=== PATIENT | female | born 1980 | race Caucasian/White ===

== ENCOUNTER 2017-03-27 17:03 | Emergency (ER) | payer BC ==
--- NOTE | 2017-03-27 17:51 | ER Document Report ---
ED Medical Screen (RME) - General Chief Complaint: Possible Overdose Stated Complaint: POSSIBLE ALLERGIC REACTION TO MEDS Time Seen by Provider: 03/27/17 17:33 Mode of Arrival: Wheelchair Information source: Patient, Relative TRAVEL OUTSIDE OF THE [place] IN LAST 30 DAYS: No - HPI Onset: This afternoon Onset/Duration: Gradual - UNSURE Context: Patient's spouse says he came home from work today to find the patient confused , pacing back and forth, unable to tell him exactly what was going on. Quality of pain: No pain - DENIES AT PRESENT Associated Symptoms: denies: Chest pain, Fever, Headache Similar symptoms previously: No Recently seen / treated by doctor: Yes Notes: 03/27/17 17:50 Patient is on multiple medications, prescribed more than 1 practitioner. - Related Data Allergies/Adverse Reactions: doxycycline [Doxycycline] Allergy (Verified 03/27/17 17:05) moxifloxacin HCl [From Avelox] Allergy (Verified 03/27/17 17:05) Past Medical History - General Information source: Patient, Relative - Social History Chew tobacco use (# tins/day): No Frequency of alcohol use: None Drug Abuse: None Lives with: Spouse/Significant other - Past Medical History Cardiac Medical History: Reports: Hx Hypertension Pulmonary Medical History: Reports: None Renal/ Medical History: Denies: Hx Peritoneal Dialysis GI Medical History: Reports: Hx Gastroesophageal Reflux Disease Musculoskeltal Medical History: Reports Hx Arthritis - SUSPECTED RHEUMATOID DISEASE Psychiatric Medical History: Reports: Hx Anxiety, Hx Depression Past Surgical History: Reports: Hx Orthopedic Surgery - right FA x4, Hx Tonsillectomy - & adenoids - Immunizations Hx Diphtheria, Pertussis, Tetanus Vaccination: Yes Review of Systems - Review of Systems -: Yes ROS unobtainable due to patient's medical condition Physical Exam - Vital signs Vitals: Temp Pulse Resp BP Pulse Ox 97.9 F 110 H 22 H 136/109 H 97 03/27/17 17:05 03/27/17 17:05 03/27/17 17:05 03/27/17 17:05 03/27/17 17:05 Interpretation: Hypertensive, Tachycardic, Tachypneic. No: Febrile - General General appearance: Other - AGITATED In distress: None - HEENT Head: Normocephalic Eyes: Normal Conjunctiva: Normal Pupils: Dilated Ears: Normal Nasal: Normal Mouth/Lips: Normal Mucous membranes: Normal Neck: Normal, Supple - Respiratory Respiratory status: No respiratory distress - Cardiovascular Rhythm: Regular, Tachycardia - Abdominal Inspection: Obese - Extremities General upper extremity: Normal inspection General lower extremity: Normal inspection - Neurological Neuro grossly intact: No Cognition: Confused Orientation: Disoriented to time [place] Coma Scale Eye Opening: Spontaneous [place] Coma Scale Verbal: Oriented [place] Coma Scale Motor: Obeys Commands [place] Coma Scale Total: 15 Speech: Expressive aphasia Cranial nerves: Normal Cerebellar coordination: Gait ataxia 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
[2017-03-27 18:13] LABS: ABSOLUTE BASOPHILS # (AUTO) 0.1 10^3/uL (0.0-0.2); ABSOLUTE LYMPHOCYTES (AUTO) 3.6 10^3/uL (0.5-4.7); ABSOLUTE MONOCYTES (AUTO) 0.5 10^3/uL (0.1-1.4); ABSOLUTE NEUT (AUTO) 14.2 10^3/uL (1.7-8.2); BASOPHILS % (AUTO) 0.6 % (0-2); EOSINOPHILS % (AUTO) 0.1 % (0-6); HEMATOCRIT 41.9 % (36.0-47.0); HEMOGLOBIN 13.8 g/dL (12.0-15.5); HGB HCT DIFFERENCE -0.5; LYMPHOCYTES % (AUTO) 19.6 % (13-45); MEAN CORPUSCULAR HEMOGLOBIN 29.9 pg (27.0-33.4); MEAN CORPUSCULAR VOLUME 91 fl (80-97); MONOCYTES % (AUTO) 2.9 % (3-13); RED BLOOD COUNT 4.62 10^6/uL (3.72-5.28); RED CELL DISTRIBUTION WIDTH 13.4 % (11.5-14.0); SEGMENTED NEUTROPHILS % (AUTO) 76.8 % (42-78); WHITE BLOOD COUNT 18.5 10^3/uL (4.0-10.5)
[2017-03-27] MEDS ORDERED: NORMAL SALINE 1000 ML 1,000 ML IV ONE (18:18)
--- NOTE | 2017-03-27 18:23 | ER Document Report ---
ED General - General Chief Complaint: Possible Overdose Stated Complaint: POSSIBLE ALLERGIC REACTION TO MEDS Time Seen by Provider: 03/27/17 17:33 Mode of Arrival: Wheelchair Information source: Patient, Relative Cannot obtain history due to: Altered mental status Notes: This is a 36-year-old female who presents with altered mental status. Her , she has a history of hypertension, spina bifida and chronic back pain for which she takes chronic opiates, rheumatoid arthritis, and hyperthyroidism. Majority of the history is obtained from the as patient is confused. He states that he initially noted that she was confused at about midnight last night. She seemed somewhat agitated and was pacing around the house. He went back to sleep. It appears that the patient was up all night. When he left this morning he states that she seemed a little better and not as confused. When he returned home from work at about 1615, states that she again was confused and speaking "gibberish" and pacing around the house. She was unable to tell him what was going on and just kept saying I am sorry and okay. Upon arrival to the ER patient is alert but confused. states that this has never happened before. Patient is denying taking any other medicines than prescribed and denies overdosing at this time. TRAVEL OUTSIDE OF THE [place] IN LAST 30 DAYS: No - Related Data Allergies/Adverse Reactions: doxycycline [Doxycycline] Allergy (Verified 03/27/17 17:05) moxifloxacin HCl [From Avelox] Allergy (Verified 03/27/17 17:05) Past Medical History - General Information source: Patient, Relative Cannot obtain history due to: Altered mental status - Social History Smoking Status: Current Every Day Smoker Chew tobacco use (# tins/day): No Frequency of alcohol use: None Drug Abuse: None Lives with: Spouse/Significant other Family History: None, Reviewed & Not Pertinent Patient has suicidal ideation: No Patient has homicidal ideation: No - Past Medical History Cardiac Medical History: Reports: Hx Hypertension Pulmonary Medical History: Reports: None Endocrine Medical History: Reports: Hx Hyperthyroidism Renal/ Medical History: Denies: Hx Peritoneal Dialysis GI Medical History: Reports: Hx Gastroesophageal Reflux Disease Musculoskeltal Medical History: Reports Hx Arthritis - SUSPECTED RHEUMATOID DISEASE, Reports Other - chronic back pain Psychiatric Medical History: Reports: Hx Anxiety, Hx Depression Past Surgical History: Reports: Hx Orthopedic Surgery - right FA x4, Hx Tonsillectomy - & adenoids - Immunizations Hx Diphtheria, Pertussis, Tetanus Vaccination: Yes Review of Systems - Review of Systems -: Yes ROS unobtainable due to patient's medical condition - altered mental status. reports no fevers or recent illness Physical Exam - Vital signs Vitals: Temp Pulse Resp BP Pulse Ox 97.9 F 110 H 22 H 136/109 H 97 03/27/17 17:05 03/27/17 17:05 03/27/17 17:05 03/27/17 17:05 03/27/17 17:05 - Notes Notes: PHYSICAL EXAMINATION: GENERAL: Well-appearing, well-nourished obese female who is alert but confused, and in no acute distress. HEAD: Atraumatic, normocephalic. Flushed cheeks. EYES: Pupils dilated 4mm bilaterally, sluggishly reactive, extraocular movements intact, sclera anicteric, conjunctiva are normal. ENT: nares patent, oropharynx clear without exudates. Mucous membranes dry NECK: Normal range of motion, supple without lymphadenopathy LUNGS: Breath sounds clear to auscultation bilaterally and equal. No wheezes rales or rhonchi. HEART: tachycardic Regular rate and rhythm without murmurs ABDOMEN: Soft, nontender, normoactive bowel sounds. No guarding, no rebound. No masses appreciated. EXTREMITIES: Normal range of motion NEUROLOGICAL: Pt alert to person, knows she is in the hospital. Slow to respond to questions. Repeatedly says "I'm sorry". Seems confused. Unable to state the year or month. Cranial nerves grossly intact. No gross focal motor or sensory deficits appreciated PSYCH: Normal mood, normal affect. SKIN: Warm, Dry, normal turgor, flushed cheeks Course - Re-evaluation Re-evalutation: 03/27/17 19:45 Patient presents with altered mental status and vitals and exam findings concerning for anticholinergic toxidrome. Will complete a med list reviewed. Patient is denying any specific overdose at this time but she is altered. 03/27/17 20:37 Patient reexamined. Vital signs no longer show tachycardia or hypertension. Pulse rate is 75, blood pressure 125/63. Her mental status is the same as upon presentation, she is still confused 03/27/17 21:54 Patient seems more oriented now however she still cannot tell me the month or the day and still has episodes of confusion. She has not returned to her normal baseline. She cannot remember a specific overdose of her medication today. While I still suspect the symptoms may be due to overmedication, she does have a leukocytosis and I feel it is appropriate to rule out meningitis/ encephalitis. With the patient in a left lateral decubitus position I attempted to palpate the lumbar spinous processes. However, secondary to body habitus and multiple surgical scars over the area, I am unable to palpate her landmarks. I do not feel that a blind attempt would be successful. I did discuss this with the night radiologist and the manager technical support and will proceed with an LP under fluoroscopy. In the meantime patient will be given IV antibiotics and acyclovir. 03/28/17 04:26 Patient has had her lumbar puncture performed under fluoroscopy. The results are not indicative of meningitis or encephalitis. She is reexamined at this time. She is alert and oriented, pleasant and conversant and back to her normal self. She still denies any knowledge of overdose, however she states that she is certain that her symptoms were related to her medication. She states that from time to time this will have been secondary to her baclofen. She plans to follow-up with her primary physician this week to discuss tapering off of baclofen. At this point her vitals have normalized and she is at her baseline mental status. I do suspect that this episode of altered mental status was medication induced and perhaps even an anti-cholinergic toxidrome, which has now completely cleared. Patient is comfortable with discharge home with . She will follow up with her primary care physician this week. Strict return precautions were discussed. - Vital Signs Vital signs: Temp Pulse Resp BP Pulse Ox 97.7 F 110 H 15 124/65 97 03/27/17 20:13 03/27/17 17:05 03/28/17 04:00 03/27/17 23:01 03/28/17 04:00 - Laboratory Result Diagrams: 03/27/17 17:59 03/27/17 17:59 Laboratory results interpreted by me: 03/27/17 03/27/17 03/27/17 17:59 17:59 19:35 WBC 18.5 H Monocytes % 2.9 L Absolute Neutrophils 14.2 H ESR 35 H Sodium 148.1 H BUN 23 H Calcium 10.3 H AST 78 H ALT 118 H Urine Ketones TRACE H CSF RBC Salicylates < 1.0 L Acetaminophen < 10 L 03/28/17 01:18 WBC Monocytes % Absolute Neutrophils ESR Sodium BUN Calcium AST ALT Urine Ketones CSF RBC 1305 H Salicylates Acetaminophen - Diagnostic Test Radiology reviewed: Reports reviewed - CT head: no acute process - EKG Interpretation by Me Additional EKG results interpreted by me: 03/27/17 20:39 EKG demonstrates normal sinus rhythm with a rate of 85. QT and QRS intervals are within normal limits. There are nonspecific T-wave changes. No ST segment elevation or depression. Discharge - Discharge Clinical Impression: Altered mental status, unspecified Qualifiers: Altered mental status type: unspecified Qualified Code(s): R41.82 - Altered mental status, unspecified Medication side effect Qualifiers: Encounter type: initial encounter Qualified Code(s): T88.7XXA - Unspecified adverse effect of drug or medicament, initial encounter Leukocytosis Qualifiers: Leukocytosis type: other Qualified Code(s): D72.828 - Other elevated white blood cell count Condition: Stable Disposition: HOME, SELF-CARE Additional Instructions: Your spinal tap fluid did not show evidence of infection like meningitis or encephalitis. Take all prescription medications as prescribed. Do not suddenly stop taking the baclofen it must be tapered down. As discussed, follow-up with your primary care physician on Thursday. Return to the ER for any fever greater than 100.4, any recurrent confusion, or any worsening symptoms or concerns.
[2017-03-27 18:38] LABS: ALANINE AMINOTRANSFERASE 118 U/L (9-52); ALBUMIN 4.7 g/dL (3.5-5.0); ALCOHOL < 10 mg/dL (NONE DETECTED); ALKALINE PHOSPHATASE 79 U/L (38-126); ANION GAP 15 (5-19); ASPARTATE AMINO TRANSFERASE 78 U/L (14-36); BILIRUBIN,DIRECT 0.4 mg/dL (0.0-0.4); BILIRUBIN,TOTAL 0.9 mg/dL (0.2-1.3); BLOOD UREA NITROGEN 23 mg/dL (7-20); CALCIUM 10.3 mg/dL (8.4-10.2); CARBON DIOXIDE 27 mmol/L (22-30); CHLORIDE 106 mmol/L (98-107); CREATININE RESULT 0.76 mg/dL (0.52-1.25); GLUCOSE 110 mg/dL (75-110); POTASSIUM 3.9 mmol/L (3.6-5.0); SODIUM 148.1 mmol/L (137-145); TOTAL PROTEIN 8.2 g/dL (6.3-8.2)
[2017-03-27 18:51] LABS: ERYTHROCYTE SEDIMENTATION RATE 35 mm/hr (0-20)
--- NOTE | 2017-03-27 19:26 | RADIOLOGY REPORT (SQ) ---
EXAM DESCRIPTION: CT HEAD WITHOUT COMPLETED DATE/TIME: 03/27/2017 7:17 pm REASON FOR STUDY: AMS COMPARISON: None. TECHNIQUE: Axial images acquired through the brain without intravenous contrast. Images reviewed wi th bone, brain and subdural windows. Images stored on PACS. All CT scanners at this facility use dose modulation, iterative reconstruction, and/or weight based d osing when appropriate to reduce radiation dose to as low as reasonably achievable (ALARA). [facility]: Dose Right [facility]: CareDose [facility]: Dose Right [facility]: Teradose 4D [facility]: [employer] RADIATION DOSE: 64.61 mGy. LIMITATIONS: None. FINDINGS: VENTRICLES: Normal size and contour. CEREBRUM: No masses. No hemorrhage. No midline shift. Normal valencia/white matter differentiation. N o evidence for acute infarction. CEREBELLUM: No masses. No hemorrhage. No alteration of density. No evidence for acute infarction. EXTRAAXIAL SPACES: No fluid collections. No masses. ORBITS AND GLOBE: No intra- or extraconal masses. Normal contour of globe without masses. CALVARIUM: No fracture. PARANASAL SINUSES: No fluid or mucosal thickening. SOFT TISSUES: No mass or hematoma. OTHER: No other significant finding. IMPRESSION: NORMAL BRAIN CT WITHOUT CONTRAST. TECHNICAL DOCUMENTATION: JOB ID: [id number] Quality ID # [id number]: Final reports with documentation of one or more dose reduction techniques (e.g., Au tomated exposure control, adjustment of the mA and/or kV according to patient size, use of iterative reconstruction technique) 2010 [employer]- All Rights Reserved
[2017-03-27 20:02] LABS: APPEARANCE,URINE SLIGHTLY-CLOUDY; BILIRUBIN,URINE NEGATIVE (NEGATIVE); GLUCOSE, URINE NEGATIVE (NEGATIVE); KETONES,URINE TRACE mg/dL (NEGATIVE); LEUKOCYTE ESTERASE,URINE NEGATIVE (NEGATIVE); NITRITE,URINE NEGATIVE (NEGATIVE); PROTEIN,URINE NEGATIVE (NEGATIVE); URINE SPECIFIC GRAVITY 1.028; UROBILINOGEN,URINE NEGATIVE mg/dL (<2.0)
[2017-03-27 20:07] LABS: THYROID STIMULATING HORMONE 1.81 uIU/mL (0.47-4.68)
[2017-03-27 20:16] LABS: URINE BARBITURATES SCREEN NEGATIVE; URINE METHADONE SCREEN NEGATIVE; URINE OPIATES LOW UNCONFIRMED POSITIVE; URINE PHENCYCLIDINE SCREEN NEGATIVE
[2017-03-27] MEDS ORDERED: CEFTRIAXONE 2 GM/D5W RTU 50 ML IV ONE (21:48)
[2017-03-27] MEDS ORDERED: ACYCLOVIR SODIUM INJ/PF 500 MG/10 ML SDV IV ONE (21:49)
[2017-03-27 21:53] LABS: PARTIAL THROMBOPLASTIN TIME 30.6 SEC (23.5-35.8); PROTHROMBIN TIME 13.3 SEC (11.4-15.4)
[2017-03-27] MEDS ORDERED: MORPHINE SULFATE 10 MG/ML INJ IV ONE (23:06)
--- NOTE | 2017-03-28 01:54 | RADIOLOGY REPORT (SQ) ---
EXAM DESCRIPTION: LUMBAR PUNCTURE COMPLETED DATE/TIME: 03/28/2017 1:43 am REASON FOR STUDY: AMS, leukocytosis, obese, multiple back surgeries COMPARISON: None. FLUOROSCOPY TIME: 42 seconds 10 images saved to PACS. TECHNIQUE: Fluoroscopic guided lumbar puncture. LIMITATIONS: Body habitus, 3 prior back surgery secondary to spina bifida. PROCEDURE: After written consent and assessment were obtained, the patient was brought into the fluo roscopy room and placed prone on the table. The patient's lower back was prepped in a sterile fashio n and an entry site was selected under live fluoroscopic guidance. The entry site was anesthetized wi th 1% lidocaine. A 22 gauge needle was advanced through the skin and into the thecal sac at the level of L3-L4. After approximately 5 ml was drained, the needle was removed and a sterile bandage was sahil rosalino of the site. Specimens were sent to the lab for testing. CFS sample was bloody. Fluid cleared after a 2nd vial. This was atraumatic LP due to patient's body habitus A fluoroscopic spot image was saved to PACS confirming level access. FINDINGS: Bloody CSF, traumatic LP IMPRESSION: Lumbar puncture under fluoroscopy. No immediate complication. COMMENT: Patient medication list reviewed: Yes- Quality ID# [id number]:Eligible professional attests to doc umenting in the medical record they obtained, updated, or reviewed the patient's current medications. . Quality ID 145: Final reports for procedures using fluoroscopy that document radiation exposure migel luann, or exposure time and number of fluorographic images (if radiation exposure indices are not avail able) TECHNICAL DOCUMENTATION: JOB ID: [id number] 1988 [employer]- All Rights Reserved
[2017-03-28 02:17] LABS: GLUCOSE,CSF 67 mg/dL (40-70)
[2017-03-28 02:36] LABS: APPEARANCE ALL TUBES CLEAR; RBC AVERAGE 1174.5; RBC DILUENT USED NONE USED; RBC SIDE 1 1158; RBC SIDE 2 1191
[2017-03-28 02:37] LABS: RBC DILUTION FACTOR 1; TOTAL RBC SQUARES COUNTED 225; WHITE BLOOD CELL,CSF 3 /uL (0-5)
[2017-03-28 02:38] LABS: APPEARANCE TUBE 1 CLEAR; APPEARANCE TUBE 2 CLEAR; APPEARANCE TUBE 3 CLEAR
[2017-03-28 02:39] LABS: RBC DILUENT USED NONE USED; RBC SIDE 1 106; RBC SIDE 2 116
[2017-03-28 02:40] LABS: RBC DILUTION FACTOR 1; TOTAL RBC SQUARES COUNTED 225; WHITE BLOOD CELL,CSF 1 /uL (0-5)
[2017-03-28 04:47] VITALS: BP 124/65
--- NOTE | 2017-03-28 08:48 | RADIOLOGY REPORT (SQ) ---
EXAM DESCRIPTION: FLUORO/NEEDLE PLACEMENT/SPINE COMPLETE DATE/TIME: 03/28/2017 7:06 am REASON FOR STUDY: AMS,LEUKOCYTOSIS FINDINGS: Please see combined report for performance of procedure and radiologic supervision and int erpretation. IMPRESSION: Please see combined report for performance of procedure and radiologic supervision and i nterpretation.
--- NOTE | 2017-03-28 10:46 | EKG REPORT ---
SEVERITY:- NORMAL ECG - SINUS RHYTHM : Confirmed by: Gilberto Toussaint 28-Mar-2017 10:45:59
== END 2017-03-28 05:00 | disposition home or self-care (01) ==
LOC: ER 17:03
DX: T88.7XXA Unspecified adverse effect of drug or medicament, initial encounter (principal); D72.828 Other elevated white blood cell count; R41.82 Altered mental status, unspecified
CPT/HCPCS: 93005; 99284; 96375; 96365; 96367; 36415; 87040; 87070; 84439; 87205; 80307 ×4; 84443; 84703; 85025; 85652; 85610; 85730; 89050; 82945; 84157; 80053; 81001; 77003; 62270; 70450; 93010; J0133; J2270; J7030; J0696

== ENCOUNTER 2017-09-30 12:15 | Outpatient (CLI) | payer BC, MEDICARE ==
[~2017-09-30 12:15] MED LIST: ACETAMINOPHEN 325 MG TABLET PO PRN; DIPHENHYDRAMINE HCL 25 MG CAPSULE PO PRN; IRON DEXTRAN COMPLEX 25 MG in SYRINGE, DISPOSABLE, 1 EACH IV PRN; IRON DEXTRAN COMPLEX 975 MG in NORMAL SALINE 1000 ML 1,000 ML IV PRN; NORMAL SALINE 250 ML IV PRN
[2017-09-30 14:05] VITALS: BP 105/61
== END 2017-09-30 17:30 | disposition home or self-care (01) ==
LOC: 5TH 12:15 → II 12:15
PROVIDERS: ATTEND Internal Medicine
PROC: 3E033GC Introduction of Other Therapeutic Substance into Peripheral Vein, Percutaneous Approach (ICD-10-PCS; principal; 2017-09-30)
DX: D50.9 Iron deficiency anemia, unspecified (principal)
CPT/HCPCS: 96365; 96366; 96374; J1750; J7030; J3490; 96367

== ENCOUNTER 2019-05-13 07:43 | Day surgery (SDC) | payer BC, MEDICARE ==
[~2019-05-13 07:43] MED LIST changes: -ACETAMINOPHEN 325 MG TABLET PO PRN; -DIPHENHYDRAMINE HCL 25 MG CAPSULE PO PRN; -IRON DEXTRAN COMPLEX 25 MG in SYRINGE, DISPOSABLE, 1 EACH IV PRN; -IRON DEXTRAN COMPLEX 975 MG in NORMAL SALINE 1000 ML 1,000 ML IV PRN; -NORMAL SALINE 250 ML IV PRN; +PROPOFOL INJ 200 MG/20 ML VIAL IV ONE
[2019-05-13 08:58] VITALS: BP 96/51
--- NOTE | 2019-05-13 11:00 | Operative Report ---
Operative Report DATE OF SURGERY: 05/13/19 Operative Report: The risks benefits and alternatives of the procedure explained to the patient in detail and informed consent is obtained.A GIF Olympus video scope was inserted into the patient's mouth and hypopharynx, the esophagus is identified intubated and insufflated, the scope was then advanced through the esophagus stomach and duodenum, retroflexion maneuver is done, the esophagus stomach and first and second portions of the duodenum examined. PREOPERATIVE DIAGNOSIS: Nausea vomiting POSTOPERATIVE DIAGNOSIS: Gastritis status post biopsy. Evidence of possible gastroparesis OPERATION: EGD with biopsy SURGEON: JORGE TERRELL ANESTHESIA: LMAC TISSUE REMOVED OR ALTERED: As noted above. COMPLICATIONS: None. ESTIMATED BLOOD LOSS: None. INTRAOPERATIVE FINDINGS: As noted above. PROCEDURE: Patient tolerated the procedure well. No immediate postprocedure complications are noted. Patient is discharged in good condition. Discharge date 05/13/2019. Discharge diet: Regular. Discharge activity: Regular. 2 to 3-week follow-up to discuss findings. Patient is instructed to call the office or proceed to the emergency room should there be any further problems or questions. Wait on the pathology.
== END 2019-05-13 09:06 | disposition home or self-care (01) ==
LOC: END 07:43
PROVIDERS: ATTEND Internal Medicine Gastroenterology
DX: K29.50 Unspecified chronic gastritis without bleeding (principal); I10 Essential (primary) hypertension; I49.9 Cardiac arrhythmia, unspecified; E66.9 Obesity, unspecified; F17.210 Nicotine dependence, cigarettes, uncomplicated
CPT/HCPCS: 43239; 88305 ×2; 00731; J2704; 731

== ENCOUNTER → 2020-04-18 | Outpatient (CLI) | payer BC, MEDICARE ==
--- NOTE | 2020-04-18 12:38 | RADIOLOGY REPORT (SQ) ---
EXAM DESCRIPTION: U/S ABDOMEN LIMITED W/O DOP IMAGES COMPLETED DATE/TIME: 04/18/2020 9:39 am REASON FOR STUDY: BILIOUS VOMITING (R11.14) R11.14 BILIOUS VOMITING COMPARISON: None. TECHNIQUE: Dynamic and static grayscale images acquired of the abdomen and recorded on PACS. Additio nal selected color Doppler and spectral images recorded. LIMITATIONS: Body habitus FINDINGS: PANCREAS: No masses. Visualized pancreatic duct normal caliber. LIVER: Hepatomegaly. Increased echogenicity. No masses. LIVER VASCULATURE: Not seen. GALLBLADDER: A few small gallstones are present. Slight thickening of the gallbladder wall at 3.5 mm . No pericholecystic fluid. ULTRASOUND-DETECTED COLON'S SIGN: Negative. INTRAHEPATIC DUCTS AND COMMON DUCT: Not seen. INFERIOR VENA CAVA: Normal flow. AORTA: No aneurysm. RIGHT KIDNEY: Normal size 9.6 cm. Normal echogenicity. No solid or suspicious masses. No hydronephro sis. No calcifications. PERITONEAL AND RIGHT PLEURAL SPACE: No ascites or effusions. OTHER: No other significant findings. IMPRESSION: Cholelithiasis with no evidence of cholecystitis. Hepatomegaly with hepatic steatosis. Study is slightly limited. TECHNICAL DOCUMENTATION: JOB ID: [id number] 2010 [employer]- All Rights Reserved Reading location - IP/workstation name: [email or web address]
== END ==
LOC: RAD 07:03
PROVIDERS: ATTEND Internal Medicine Gastroenterology
DX: K80.20 Calculus of gallbladder without cholecystitis without obstruction (principal); R11.14 Bilious vomiting; K76.0 Fatty (change of) liver, not elsewhere classified; R16.0 Hepatomegaly, not elsewhere classified
CPT/HCPCS: 76705

== ENCOUNTER → 2020-04-24 | Outpatient (CLI) | payer BC, MEDICARE ==
--- NOTE | 2020-04-24 11:50 | RADIOLOGY REPORT (SQ) ---
EXAM DESCRIPTION: NM HIDA SCAN IMAGES COMPLETED DATE/TIME: 04/24/2020 8:57 am REASON FOR STUDY: BILIOUS VOMITING R11.14 BILIOUS VOMITING COMPARISON: None. RADIONUCLIDE AND DOSE: DOSAGE RADIONUCLIDE: 5.35 millicuries Tc99m Mebrofenin. DOSAGE MORPHINE: Not required. The route of agent administration: Intravenous TECHNIQUE: Serial imaging right upper quadrant up to 60 minutes following injection of radionuclide. Patient imaged AP and Right Lateral. LIMITATIONS: None. FINDINGS: LIVER: Normal visualization without areas of photopenia. INTRA-HEPATIC BILE DUCTS: Temporal visualization normal. No dilatation. COMMON BILE DUCT: Normal without dilatation or delayed visualization. GALLBLADDER: Normal visualization. OTHER: No other significant finding. IMPRESSION: NORMAL STUDY WITHOUT CYSTIC OR COMMON DUCT OBSTRUCTION. TECHNICAL DOCUMENTATION: JOB ID: [id number] 2010 [employer]- All Rights Reserved Reading location - IP/workstation name: [email or web address]
== END ==
LOC: RAD 07:25
PROVIDERS: ATTEND Internal Medicine Gastroenterology
DX: R11.14 Bilious vomiting (principal)
CPT/HCPCS: 78226; A9537; Q9969

== ENCOUNTER 2020-11-06 08:58 | Day surgery (SDC) | payer BC, MEDICARE ==
[2020-11-06 11:05] VITALS: BP 142/77
--- NOTE | 2020-11-06 11:41 | Operative Report ---
Operative Report DATE OF SURGERY: 11/06/20 Operative Report: The risk, benefits and alternatives of the procedure including the risk of bleeding, perforation requiring surgery have been explained to the patient in detail and informed consent is obtained. The patient is taken back to the operating room and placed in a left, lateral decubital position. Propofol medication is administered. Rectal examination is done which did not reveal any masses, tears or fissures. An Olympus videoscope was introduced into the p atient's rectum. Scope was then carefully advanced all the way to the cecum. Cecum was identified by the usual anatomical landmarks of the ileocecal valve as well as the appendiceal office. Photodocumentation is obtained. Intubation of the terminal ileum was done. Scope was then sequentially pulled back via the various segments of the colon including the ascending colon, hepatic flexure, transverse colon, splenic flexure, descending colon finally into the rectosigmoid portions of the colon. Retroflexion maneuver is performed. PREOPERATIVE DIAGNOSIS: Change in bowel habits POSTOPERATIVE DIAGNOSIS: Random biopsies taken in the terminal ileum rule out Crohn's disease OPERATION: Colonoscopy with biopsy SURGEON: JORGE TERRELL ANESTHESIA: LMAC TISSUE REMOVED OR ALTERED: As noted above. COMPLICATIONS: None. ESTIMATED BLOOD LOSS: None. INTRAOPERATIVE FINDINGS: As noted above. PROCEDURE: Patient tolerated the procedure well. No immediate postprocedure complications are noted. Patient is discharged in good condition. Discharge date 11/06/2020. Discharge diet: Regular. Discharge activity: Regular. 2 to 3-week follow-up to discuss findings. Patient is instructed to call the office or proceed to the emergency room should there be any further problems or questions. Wait on the pathology.
== END 2020-11-06 11:15 | disposition home or self-care (01) ==
LOC: OROUT 08:58
PROVIDERS: ATTEND Internal Medicine Gastroenterology
DX: K50.00 Crohn's disease of small intestine without complications (principal); K64.8 Other hemorrhoids; Z79.899 Other long term (current) drug therapy; M06.9 Rheumatoid arthritis, unspecified; Q05.9 Spina bifida, unspecified; K21.9 Gastro-esophageal reflux disease without esophagitis; I10 Essential (primary) hypertension; E66.9 Obesity, unspecified; E07.9 Disorder of thyroid, unspecified; Z79.890 Hormone replacement therapy
CPT/HCPCS: 45380; 88305 ×2; J2704; 811